=== PATIENT | female | born 1985 | race Two or more races ===

== ENCOUNTER 2020-12-02 23:25 | Emergency (ER) | payer BC ==
[~2020-12-02] VITALS: Ht 162.6 cm; Wt 98.6 kg
[2020-12-03] MEDS ORDERED: SODIUM CHLORIDE 0.9% 1,000ML IVBOLUS ONE
[2020-12-03] MEDS ORDERED: ONDANSETRON 2MG/ML, 2ML IVPush ONE
[2020-12-03 00:02] LABS: BASOPHILS % (AUTO) 1 % (0-1); EOSINOPHILS % (AUTO) 1 % (1-7); LYMPHOCYTES % (AUTO) 26 % (22-44); MEAN CORPUSCULAR HEMOGLOBIN 28.1 pg (27.0-34.8); MEAN CORPUSCULAR HGB CONC 32.6 g/dL (32.4-35.8); MEAN PLATELET VOLUME 7.8 fL (7.4-10.4); MONOCYTES % (AUTO) 6 % (2-9); NEUTROPHILS % (AUTO) 66 % (42-75); PLATELET COUNT 341 x10^3/uL (130-400); RED CELL DISTRIBUTION WIDTH 12.6 % (9.6-15.2)
[2020-12-03] MEDS ORDERED: ONDANSETRON 2MG/ML, 2ML ONE (00:03)
[2020-12-03] MEDS ORDERED: MORPHINE SULFATE 4 MG/ML, 1ML ONE ×2 (00:03→01:12)
[2020-12-03 00:15] LABS: ALANINE AMINOTRANSFERASE 25 U/L (12-78); ALBUMIN 3.6 g/dL (3.4-5.0); ANION GAP 4 mmol/L (5-15); CALCIUM 9.5 mg/dL (8.5-10.1); CHLORIDE 106 mmol/L (98-107); CREATININE 0.74 mg/dL (0.55-1.02)
[2020-12-03] MEDS: MORPHINE SULFATE 4 MG/ML, 1ML IVPush PRN ×2 (00:17→01:14)
[2020-12-03 00:20] LABS: ALKALINE PHOSPHATASE 79 U/L (45-117); BILIRUBIN,TOTAL 0.4 mg/dL (0.2-1.0)
--- NOTE | 2020-12-03 00:33 | NUR ---
PT TO US
[2020-12-03] MEDS ORDERED: MAALOX/HYOSCYAMINE/LIDOCAINE 45 ML BTL PO ONE (02:00)
[2020-12-03] MEDS ORDERED: MAALOX/HYOSCYAMINE/LIDOCAINE 45 ML BTL ONE (02:04)
[2020-12-03 02:33] VITALS: BP 110/82
== END 2020-12-03 02:40 | disposition home or self-care (01) ==
LOC: ED 23:33
DX: K80.20 Calculus of gallbladder without cholecystitis without obstruction (principal); A09 Infectious gastroenteritis and colitis, unspecified; R10.13 Epigastric pain; R11.2 Nausea with vomiting, unspecified
CPT/HCPCS: 36415; 76700; 80053; 83690; 84703; 85025; 96361; 96374; 96375; 96376; 99284; J2270; J2405; J7030